=== PATIENT | female | born 1965 | race American Indian/Alaskan Native ===

== ENCOUNTER 2019-10-02 09:25 | Day surgery (SDC) | payer OTHER ==
[2019-10-02] MEDS ORDERED: LIDOCAINE MPF (2%) 20 MG/1 ML VIAL 5 ML ONE (11:00)
[2019-10-02] MEDS ORDERED: SODIUM CHLORIDE 0.9% 1000 ML 1,000 ML ONE (11:07)
[2019-10-02] MEDS ORDERED: SODIUM CHLORIDE 0.9% 1000 ML 1,000 ML IV SCH (11:15)
[2019-10-02] MEDS ORDERED: PROPOFOL 200 MG/20 ML VIAL IV ONE ×2 (12:13)
--- NOTE | 2019-10-02 12:37 | Anesthesia Day of Surgery ---
Anesthesia Day of Surgery - Day of Surgery Patient Examined: Yes Patient H&P Reviewed: Yes Patient is NPO: Yes Beta Blockers: No
--- NOTE | 2019-10-02 12:37 | Anesthesia Consultation ---
Anesthesia Consult and Med Hx Date of service: 10/02/19 - Airway Anesthetic Teeth Evaluation: Good ROM Head & Neck: Adequate Mental/Hyoid Distance: Inadequate Mallampati Class: Class III Intubation Access Assessment: Possibly Difficult - Pre-Operative Health Status ASA Pre-Surgery Classification: ASA3 Proposed Anesthetic Plan: MAC - Cardiovascular System Hx Hypertension: Yes - Gastrointestinal Hx Gastroesophageal Reflux Disease: Yes - Other Systems Hx Obesity: Yes
--- NOTE | 2019-10-02 12:49 | Short Stay Summary ---
Short Stay Documentation Date of service: 10/02/19 Narrative H&P: The patient presents for EGD to evaluate upper abdominal pain and GERD. - History Past Medical History: GERD, other (Osteoporosis, morbid obesity,) Past Surgical History: hysterectomy Social history: no significant social history, , lives with family - Allergies and Medications Current Medications: Allergies No Known Allergies Allergy (Verified 10/02/19 11:11) Home Medications Medication Instructions Recorded Confirmed Last Taken Type Losartan/Hydrochlorothiazide 10/02/19 09/29/19 History Potassium 10 mg PO DAILY 10/02/19 10/02/19 09/29/19 History Xanax TAB 1 mg PO PRN 10/02/19 10/01/19 History Active Medications Sodium Chloride (Nacl 0.9% 1000 Ml) 1,000 mls @ 50 mls/hr IV DIRECT AMY - Physical exam General appearance: no acute distress, well-nourished, obese Integumentary: no rash, no growths, no abnormal pigmentation HEENT: Atraumatic, PERRLA, EOMI, Mucous membr. moist/pink Lungs: Clear to auscultation, Normal air movement Breasts: deferred Heart: Regular rate, Normal S1, Normal S2, No murmurs Gastrointestinal: normoactive bowel sounds, no absent bowel sounds, no tenderness, no distended, no masses, no guarding, no organomegaly, obese Female Genitourinary: deferred Rectal Exam: deferred Extremities: no ischemia, pulses intact, pulses symmetrical, No edema, normal temperature, normal color, Full ROM Neurological: Normal gait, Normal speech, Strength at 5/5 X4 ext, Normal tone, Sensation intact, Cranial nerves 3-12 NL - Brief post op/procedure progress note Date of procedure: 10/02/19 Findings: see dictation Estimated blood loss: none Pathology: list (antral biopsies for h.pylori) Specimen disposition: to lab Condition: stable - Disposition Condition at discharge: Good Disposition: DC-01 TO HOME OR SELFCARE - Discharge Diagnoses (1) Epigastric pain Status: Acute (2) GERD (gastroesophageal reflux disease) Status: Acute Short Stay Discharge Plan Activity: other (no driving for 24 hours) Weight Bearing Status: Full Weight Bearing Diet: regular Follow up with: LISSETT JI MD [Primary Care Provider] - 7 Days
--- NOTE | 2019-10-02 12:52 | Operative Report ---
Operative Report Operative Report: Date of procedure: 10/02/2019 Procedure: Esophagogastroduodenoscopy with biopsies of the antrum for H. pylori Preprocedure diagnosis: Epigastric and left upper quadrant pain. Chronic gastroesophageal reflux symptoms. Post procedure diagnosis: Medium size hiatal hernia. Normal appearing upper digestive tract otherwise. Endoscopist: Dr. Barahona Anesthesia: Monitored anesthesia care per anesthesia department Medications: Propofol per anesthesia. Estimated blood loss: 0 After careful discussion of the nature and purpose of the procedure as well as details the technique risks benefits and alternatives consent was obtained. The patient was placed in the left lateral decubitus position and medicated per anesthesia. The tip of the Olympus video scope was passed per orum under direct vision into the esophagus and advanced into the stomach and descending duodenum. The descending duodenum the duodenal bulb and pylorus were symmetrical and normal. The scope was withdrawn into the stomach and the stomach then gently insufflated with air. The antrum was normal. Biopsies were taken for H. pylori in the antrum. The stomach was further insufflated and the scope was then retroflexed and partially withdrawn. The cardia, fundus, and body of the stomach were within normal limits and easily distensible.The scope was then withdrawn in the forward position. The esophagogastric junction was at 36 cm. A medium size hiatus hernia was present. The esophageal body was normal throughout. The procedure was was well tolerated and the patient was observed in recovery. Impressions: Medium size hiatal hernia. Normal appearing upper digestive tract otherwise. I suspect she has symptoms related to reflux. Rule out H. pylori- biopsies pending. Plan: Patient call the office in approximately 10 days to discuss the pathology and further management. Begin famotidine 20 mg twice a day Electronically signed: Steve Barahona MD
--- NOTE | 2019-10-02 13:11 | Post Anesthesia Evaluation ---
- Post Anesthesia Evaluation Patient Participated: Yes Airway Patent: Yes Stable Respiratory Function: Yes Nausea/Vomiting: No Temp > 96.8F: Yes Pain Manageable: Yes Adequeate Hydration: Yes Anesthesia Complications: No
[2019-10-02 13:29] VITALS: BP 142/76
== END 2019-10-02 09:26 | disposition home or self-care (01) ==
LOC: GIO 09:25
PROVIDERS: ATTEND Internal Medicine Gastroenterology
DX: K21.9 Gastro-esophageal reflux disease without esophagitis (principal); R10.13 Epigastric pain; E66.01 Morbid (severe) obesity due to excess calories; M81.0 Age-related osteoporosis without current pathological fracture; K44.9 Diaphragmatic hernia without obstruction or gangrene; K31.89 Other diseases of stomach and duodenum; I10 Essential (primary) hypertension; E78.00 Pure hypercholesterolemia, unspecified; Z79.899 Other long term (current) drug therapy; Z90.710 Acquired absence of both cervix and uterus; Z68.42 Body mass index [BMI] 45.0-49.9, adult
CPT/HCPCS: 43239; 88305; 88342; J2704; J7030